=== PATIENT | female | born 1945 | race Caucasian/White ===

== ENCOUNTER → 2016-11-23 | Outpatient (CLI) | payer OTHER ==
--- NOTE | 2016-11-24 07:54 | DX ---
DEXA Bone Densitometry Technique: DEXA scan was performed on [employer] Discovery W Bone Densitometer Indication: Monitor response to treatment Comparator Study: November 2015 Results: Lumbar Spine BMD: 0.868 T-score: -1.6 Prior BMD: 0.894 % change: -3.0% Total Hip (Right) BMD: 0.651 T-score: -2.4 Prior BMD: 0.684 % Change: -4.8% Femoral Neck (Right) BMD: 0.576 T-score: -2.5 Total Hip (Left) BMD: 0.672 T-score: -2.2 Prior BMD: 0.681 % change: -1.3% Femoral Neck (Left) BMD: 0.566 T-score: -2.6 CONCLUSION: Osteoporosis In comparison to the prior study from November 2015 the patient measured BMD in the lumbar spine and r ight hip has decreased significantly. The patient measured BMD in the left hip has not changed signif icantly ADDITIONAL COMMENTS: By FRAX calculation, the estimated 10 year risk of any osteoporotic fracture is 21%. The estimated 10 year risk of hip fracture is 8.3%. Absolute fracture risk would be decreased by the use of medications for the treatment of osteoporosis . This patient meets National Osteoporosis Foundation guidelines for further pharmacologic treatment ba sed on T score less than -2.5, 10 year osteoporotic fracture risk greater than 20%, and 10 year hip f racture risk greater than 3%. Mild scoliosis is present. Mild degenerative changes are present lower lumbar spine. This will increase the measured bone densit y lumbar spine. Consider repeating the study in 1-2 years NOTE: The risk of osteoporotic fractures increases approximately twofold for each 1.0 SD decrease in T-score. The T-score represents the standard deviations from a young normal, same sex, reference po pulation. Low bone density is not the only risk factor for fracture. Clinical factors to consider include fall risk, previous osteoporotic fractures, family history of fractures, smoking, and low body weight. Patients who have an unexpectedly low BMD may need to be evaluated for secondary causes of low bone m ineral density. In comparing the present study to a prior study, lack of a significant increase or decrease in BMD ma y signify efficacy of the patient's present treatment. Bone mineral density measurements performed with densitometers produced by different manufacturers ar e not comparable. For the most reproducible BMD measurement, subsequent exams should be performed on the same densitometer.
== END ==
LOC: BMCIMAGING 14:10
PROVIDERS: ATTEND Internal Medicine Rheumatology
DX: M81.0 Age-related osteoporosis without current pathological fracture (principal)

== ENCOUNTER 2017-04-13 09:39 | Inpatient (IN) | payer OTHER ==
--- NOTE | 2017-04-01 09:17 | GHP ---
[f rep st] PREOP HISTORY AND PHYSICAL DATE OF SURGERY: April 13, 2017. PROBLEM: Right knee arthritis. HISTORY OF PRESENT ILLNESS: The patient is a 71-year-old woman admitted for a right total knee arth roplasty. I have followed her for several years with progressive degenerative arthritis in her righ t knee. She has had several series of Supartz injections. Her pain has been progressive. She is n ow having daily pain. Her activities are limited. She cannot take antiinflammatory medications bec ause of irritable bowel syndrome. PAST MEDICAL HISTORY: She is treated for irritable bowel syndrome. She also was treated for depres nacho, anxiety and sleep difficulty. No history of heart disease, stents, DVT, hepatitis, or sleep a pnea. CURRENT MEDICATIONS: Diclofenac gel, olanzapine for depression and anxiety, paroxetine 10 mg per da y. She uses a Premarin vaginal cream. DRUG ALLERGIES: Codeine causes swelling. She does not like to take antiinflammatory medications be cause of her irritable bowel syndrome. She had a rash reaction to a Band-Aid. METAL ALLERGIES: None. SOCIAL HISTORY: The patient is . 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 She does not smoke ciga rettes and drinks wine with dinner. FAMILY HISTORY: Positive for osteoporosis, diabetes, cancer, arthritis and CVA. PHYSICAL EXAMINATION: GENERAL: She is a thin, healthy-appearing woman. VITAL SIGNS: Height 5 fee t 5 inches. Weight 118 pounds. BMI 19.6. EYES: Conjunctivae and sclerae are clear. Pupils are r ound and reactive. MOUTH: Good oral hygiene. No loose teeth. CHEST: Clear. HEART: Regular rhy thm. No murmurs. EXTREMITIES: Pertinent findings are limited to her right knee. She has a small effusion. She lacks 2 or 3 degrees of full extension and flexes to 120 degrees. Her ligaments are stable. Her patella tracks properly. IMAGING: Her films show advanced medial compartment degenerative arthritis in her right knee. She is yipr-so-nfoi. She has mild degenerative arthritis in the lateral compartment. IMPRESSION ON ADMISSION: 1. Right knee degenerative arthritis, primarily involving the medial compartment. 2. Irritable bowel syndrome. 3. Treatment for depression, anxiety and sleep difficulty. PLAN: She will undergo a right total knee arthroplasty. The surgery has been described to her, inc luding the risks, complications, expectations, and recovery time. I have stressed to her the import ance of postoperative physical therapy. I have explained to her and her that a small percen tage of people do not get a good result with a total knee replacement. All her questions have been answered, and she consents to surgery. Were going to start off trying to use aspirin for DVT prophy laxis if she can tolerate it. /[id number]/MODL
[2017-04-01 14:22] LABS: % IMMATURE GRANULYOCYTES 0.2 % (0.0-1.1); ABSOLUTE IMMATURE GRANULOCYTES 0.01 10^3/uL (0.00-0.10); ADD DIFF? NO; ADD MORPH? NO; ADD SCAN? NO; ATYPICAL LYMPHOCYTE FLAG 20 (0-99); FRAGMENT RBC FLAG 0 (0-99); HEMATOCRIT 38.8 % (38.0-47.0); HEMOGLOBIN 13.4 g/dL (12.6-16.3); LEFT SHIFT FLG 0 (0-99); LIPEMIA HEMOLYSIS FLAG 90 (0-99); MEAN CELL HEMOGLOBIN 34.4 pg (27.9-34.1); MEAN CELL HEMOGLOBIN CONCENTR. 34.5 g/dL (32.4-36.7); MEAN CELL VOLUME 99.5 fL (81.5-99.8); MEAN PLATELET VOLUME 9.4 fL (8.7-11.7); PLATELET CLUMPS FLAG 0 (0-99); PLATELET COUNT 152 10^3/uL (150-400); RED CELL DISTRIBUTION WIDTH 12.2 % (11.5-15.2)
[~2017-04-13 09:39] MED LIST: ACETAMINOPHEN 325 MG TAB PO ONE; CEFAZOLIN 2 GM/DEXTR 100 ML IV ONE; CHLORHEXIDINE GLUC HIBICLENS 118 ML BTL TP ONE; DEXAMETHASONE 4 MG/ML VIAL IVP ONE; FAMOTIDINE 20 MG TAB PO ONE; NS IV ONE; POVIDONE-IODINE 20 ML in SODIUM CL IRRIG SOLUTION 500 ML IRR ONE; ROPI/epiNEPH/KETOROLAC JOINT COCKTAIL IU ONE; TRANEXAMIC ACID IV ONE; VANCOMYCIN 1 GM VIAL ONE; ceFAZolin 1 GM/5 ML SYR ONE
[2017-04-13] MEDS ORDERED: LIDOCAINE 1% 5 ML SDV ID PRN (10:00)
[2017-04-13] MEDS ORDERED: LR 1,000 ML IV ONE (10:00)
[2017-04-13] MEDS ORDERED: DEXAMETHASONE 4 MG/ML VIAL ONE (10:05)
[2017-04-13] MEDS ORDERED: FAMOTIDINE 20 MG TAB ONE (10:06)
[2017-04-13] MEDS ORDERED: CEFAZOLIN 2 GM/DEXTROSE/100 ML BAG IV ONE (10:06)
[2017-04-13] MEDS ORDERED: ACETAMINOPHEN 325 MG TAB ONE (10:06)
[2017-04-13] MEDS ORDERED: PROPOFOL/EMULSION 500 MG/50 ML BOTTLE IV ONE (11:34)
[2017-04-13] MEDS ORDERED: fentaNYL 100 MCG/2 ML INJ ONE (11:34)
--- NOTE | 2017-04-13 11:43 | PDANEPAE ---
ANE History of Present Illness 71 year old with right knee arthritis for TKA ANE Past Medical History - Cardiovascular History Hx Hypertension: No Hx Arrhythmias: No Hx Chest Pain: No Hx Coronary Artery / Peripheral Vascular Disease: No Hx CHF / Valvular Disease: No Hx Palpitations: No - Pulmonary History Hx COPD: No Hx Asthma/Reactive Airway Disease: No Hx Recent Upper Respiratory Infection: No Hx Oxygen in Use at Home: No - Neurologic History Hx Cerebrovascular Accident: No Hx Seizures: No Hx Dementia: No - Endocrine History Hx Diabetes: No - Renal History Hx Renal Disorders: No - Liver History Hx Hepatic Disorders: No - Neurological & Psychiatric Hx Hx Neurological and Psychiatric Disorders: Yes - Cancer History Hx Cancer: No - Congenital Disorder History Hx Congenital Disorders: No - GI History Hx Gastrointestinal Disorders: Yes - Chronic Pain History Chronic Pain: Yes (KNEE MONIQUE) ANE Review of Systems - Exercise capacity METS (RN): 4 METS ANE Patient History - Allergies Allergies/Adverse Reactions: codeine Allergy (Verified 03/22/17 10:53) - Home Medications Home Medications: Denosumab [Prolia] 60 mg SQ Q183D 03/22/17 [Last Taken Unknown] Estrogens,Conjugated [Premarin Vaginal (*)] 1 rebecca VG TUSA@21 03/22/17 [Last Taken 04/09/17] Herbals/Supplements -Info Only 1 ea PO DAILY 03/22/17 [Last Taken Unknown] Multivitamins [Multivitamin (*)] 1 each PO DAILY 03/22/17 [Last Taken Unknown] OLANZapine [ZyPREXA 2.5 mg (*)] 0.25 each PO HS 03/22/17 [Last Taken 04/12/17] PARoxetine HCL [Paxil 10mg (*)] 10 mg PO DAILY 03/22/17 [Last Taken 04/13/17] Polyethylene Glycol 3350 [Miralax 17 gm (*)] 17 gm PO DAILY PRN 03/22/17 [Last Taken 04/12/17] - NPO status NPO Since - Liquids (Date): 04/12/17 NPO Since - Liquids (Time): 21:30 NPO Since - Solids (Date): 04/12/17 NPO Since - Solids (Time): 19:30 - Smoking Hx Smoking Status: Never smoked - Family Anes Hx Family Hx Anesthesia Complications: NEG ANE Labs/Vital Signs - Labs Result Diagrams: 04/01/17 14:04 - Vital Signs Blood Pressure: 128/76 Heart Rate: 59 Respiratory Rate: 16 O2 Sat (%): 98 Height: 165.1 cm Weight: 53.07 kg
--- NOTE | 2017-04-13 11:49 | PDHPUP ---
History & Physical Update H&P update statement: This history and physical update is based on an assessment of the patient which was completed after admission or registration (within 24 hours), but prior to the surgery/procedure. H&P update: H&P reviewed & patient examined, no change in patient's condition since H&P completed
--- NOTE | 2017-04-13 12:04 | PDANEPAE ---
ANE History of Present Illness 71 year old with right knee arthritis. For Right TKA ANE Past Medical History - Cardiovascular History Hx Hypertension: No Hx Arrhythmias: No Hx Chest Pain: No Hx Coronary Artery / Peripheral Vascular Disease: No Hx CHF / Valvular Disease: No Hx Palpitations: No - Pulmonary History Hx COPD: No Hx Asthma/Reactive Airway Disease: No Hx Recent Upper Respiratory Infection: No Hx Oxygen in Use at Home: No - Neurologic History Hx Cerebrovascular Accident: No Hx Seizures: No Hx Dementia: No - Endocrine History Hx Diabetes: No - Renal History Hx Renal Disorders: No - Liver History Hx Hepatic Disorders: No - Neurological & Psychiatric Hx Hx Neurological and Psychiatric Disorders: Yes - Cancer History Hx Cancer: No - Congenital Disorder History Hx Congenital Disorders: No - GI History Hx Gastrointestinal Disorders: Yes - Chronic Pain History Chronic Pain: Yes (KNEE MONIQUE) ANE Review of Systems Review of systems is: negative Review of Systems: + for IBS - Exercise capacity METS (RN): 4 METS ANE Patient History - Allergies Allergies/Adverse Reactions: codeine Allergy (Verified 03/22/17 10:53) - Home Medications Home Medications: Denosumab [Prolia] 60 mg SQ Q183D 03/22/17 [Last Taken Unknown] Estrogens,Conjugated [Premarin Vaginal (*)] 1 rebecca VG TUSA@21 03/22/17 [Last Taken 04/09/17] Herbals/Supplements -Info Only 1 ea PO DAILY 03/22/17 [Last Taken Unknown] Multivitamins [Multivitamin (*)] 1 each PO DAILY 03/22/17 [Last Taken Unknown] OLANZapine [ZyPREXA 2.5 mg (*)] 0.25 each PO HS 03/22/17 [Last Taken 04/12/17] PARoxetine HCL [Paxil 10mg (*)] 10 mg PO DAILY 03/22/17 [Last Taken 04/13/17] Polyethylene Glycol 3350 [Miralax 17 gm (*)] 17 gm PO DAILY PRN 03/22/17 [Last Taken 04/12/17] - NPO status NPO Since - Liquids (Date): 04/12/17 NPO Since - Liquids (Time): 21:30 NPO Since - Solids (Date): 04/12/17 NPO Since - Solids (Time): 19:30 - Smoking Hx Smoking Status: Never smoked - Family Anes Hx Family Hx Anesthesia Complications: NEG ANE Labs/Vital Signs - Labs Result Diagrams: 04/01/17 14:04 - Vital Signs Blood Pressure: 128/76 Heart Rate: 59 Respiratory Rate: 16 O2 Sat (%): 98 Height: 165.1 cm Weight: 53.07 kg ANE Physical Exam - Airway Mallampati Score: Class 1 Mouth exam: normal dental/mouth exam - Pulmonary Pulmonary: no respiratory distress, clear to auscultation - Cardiovascular Cardiovascular: regular rate and rhythym - ASA Status ASA Status: II ANE Anesthesia Plan Anesthesia Plan: spinal
[2017-04-13] MEDS ORDERED: MIDAZOLAM 2 MG/2 ML VIAL IVP ONE (12:07)
[2017-04-13] MEDS ORDERED: ceFAZolin 1 GM VIAL ONE (12:10)
[2017-04-13] MEDS ORDERED: ceFAZolin 1 GM/5 ML SYR ONE (12:12)
[2017-04-13] MEDS ORDERED: LIDOCAINE 2% 5 ML SDV ONE (12:37)
[2017-04-13] MEDS ORDERED: ONDANSETRON 4 MG/2 ML VIAL IVP PRN ×2 (14:02→14:22)
[2017-04-13] MEDS ORDERED: PROMETHAZINE HCL 25 MG/ML INJ IVP PRN ×2 (14:02→14:22)
[2017-04-13] MEDS ORDERED: fentaNYL 100 MCG/2 ML INJ IVP PRN (14:02)
[2017-04-13] MEDS ORDERED: NALOXONE HCL 0.4 MG/ML INJ IVP PRN (14:02)
[2017-04-13] MEDS ORDERED: LACTULOSE 20 GM/30 ML UDCUP PO PRN (14:22)
[2017-04-13] MEDS ORDERED: BISACODYL 10 MG SUPP PR PRN (14:22)
[2017-04-13] MEDS ORDERED: DIPHENOXYLATE/ATROPINE LOMOTIL 1 TAB PO PRN (14:22)
[2017-04-13] MEDS ORDERED: NS 500 ML IV PRN (14:22)
[2017-04-13] MEDS ORDERED: PHARMACY PAIN CONSULT 1 EA MISC PRN (14:22)
[2017-04-13] MEDS ORDERED: POLYETHYLENE GLYCOL 3350 17 GM PKT PO PRN (14:22)
[2017-04-13] MEDS ORDERED: diphenhydrAMINE 25 MG CAP PO PRN (14:22)
[2017-04-13] MEDS ORDERED: KETOROLAC 30 MG/1 ML SDV IVP PRN (14:22)
[2017-04-13] MEDS ORDERED: PROMETHAZINE HCL 25 MG SUPPR PR PRN (14:22)
[2017-04-13] MEDS ORDERED: TEMAZEPAM 15 MG CAP PO PRN (14:22)
[2017-04-13] MEDS ORDERED: MAGNESIUM HYDROXIDE 30 ML UDCUP PO PRN (14:22)
[2017-04-13] MEDS ORDERED: ONDANSETRON DISINTEGRATING 4 MG TAB PO PRN (14:22)
--- NOTE | 2017-04-13 14:29 | POSTOPPROG ---
Post Op Note Date of Operation: 04/13/17 Surgeon: Jagdeep Betancourt Combiner Operator: Jackson/Cecilia Anesthesiologist: Warm Anesthesia: IV Sedation, Spinal Post-op Diagnosis: R knee arthritis Procedure: R TKA Inf/Abcess present in the surg proc area at time of surgery?: No EBL: 50-100 (add canal block)
[2017-04-13] MEDS ORDERED: LR 1,000 ML IV SCH (14:30)
--- NOTE | 2017-04-13 14:40 | POSTANESTH ---
Post Anesthetic Evaluation Cardiovascular Status: Normal, Stable Respiratory Status: Normal, Stable Level of Consciousness/Mental Status: Can Participate in Eval, Alert and Oriented Pain Control: Adequate, Prn Tx Ordered Nausea/Vomiting Control: Adequate, Prn Tx Ordered Complications Possibly Related to Anesthesia: None Noted Notes: Pt tolerated spinal well
--- NOTE | 2017-04-13 15:22 | GOP ---
[f rep st] OPERATIVE REPORT DATE OF OPERATION: 04/13/2017 SURGEON: Jagdeep Betancourt MD BACK FILLER OPERATOR: John Paz and Andrew Brooks. ANESTHESIA: Combination of Marcaine, spinal and IV sedation, and adductor canal block by Dr. Kris blanco. PREOPERATIVE DIAGNOSIS: Right knee severe degenerative arthritis. POSTOPERATIVE DIAGNOSIS: Right knee severe degenerative arthritis. PROCEDURE PERFORMED: Right total knee arthroplasty, cemented, Laguerre and Nephew Journey II, posterio r stabilized. FINDINGS: DESCRIPTION OF PROCEDURE: The patient was given 2 g of preoperative IV Ancef within 60 minutes of s urgery. She also received IV tranexamic acid at a dose of 10 mg/kg. She was placed on the operatin g room table and given spinal anesthesia with Marcaine by Dr. Kris Ackerman. She was then placed supine and given IV sedation. A Schafer catheter was not used. She wore a KRIS stocking and SCD on the nonop erative leg. Her right lower extremity was prepped with ChloraPrep from the upper thigh tourniquet to the tips of the toes. It was draped free using sterile sheets, stockinette, and Ioban plastic ad hesive drape. The lower leg was wrapped with compressive Coban. The leg was exsanguinated with kang vation and a 6-inch compressive wrap, and the pneumatic tourniquet was inflated to 250 mmHg. The [facility] time-out was performed to verify the correct patient identity and the virtua voorhees t surgical side and site. The [place] time-out was also performed. The [employer] leg holding device w as sterilely attached to the operating room table and used throughout the procedure to help position the knee. A straight midline incision was made centered on the patella. Subcutaneous tissues were sharply div ided and hemostasis was obtained using electrocautery. A medial subcutaneous flap was developed and the capsule and synovium were opened in a medial parapatellar fashion. Extensive degenerative ramírez ges were present in her medial compartment and in the patellofemoral joint. The medial capsule and periosteum were elevated off the rim of the medial tibial plateau all the way around to the posterom edial corner. Her medial collateral ligament was released enough to balance the medial side of the knee. In order to improve exposure, her patella was prepared first. The original thickness of the patella was measured. Peripheral osteophytes were removed. I cut a f lat surface on the back of her patella. She was sized for a 35 mm resurfacing component. I removed enough bone from the patella such that the remaining bone plus the thickness of the patellar compon ent recreated the original thickness of the patella. Her composite thickness was 22 mm. The intram edullary alignment guide system was used to set up the distal femoral cut. The distal femur was cut in 5 degrees of valgus. Because of a 10 or 12 degree flexion contracture preoperatively, I made a +2 mm cut on the distal femur. The sizing jig was used to determine proper femoral sizing. I shift ed the jig anteriorly 1 mm in order to accommodate a size 4 femoral component without notching the a nterior cortex. The 5 in 1 cutting block was applied, and the anterior and posterior condylar cuts and chamfer cuts were made. The final jig was used to remove the central portion of the distal femu r to accommodate the posterior stabilized femoral component. I was careful to determine proper rota tion by referencing off Whitesides line. Each cut was checked for accuracy before and after it was made. The femur was sized for a size 4 posterior stabilized component. The trial component was tap ped securely into place and was a good fit. Next, the tibia was prepared. The proximal tibial cut was made using the extramedullary alignment g uide system. The cut was made in a few degrees of posterior slope. I was careful to achieve proper varus valgus alignment and proper rotation. The posterior compartment was cleared of meniscal remn ants. Osteophytes were removed from the back of the femoral condyles. I checked the flexion and ex tension gaps. I felt she was still a little bit tight on the medial side. I did further more dista l release of her medial collateral ligament attachment on the tibia. At this point, the flexion ext ension gaps were equal, balanced and rectangular. The tibia was sized for a size 3 component. With the trial components in place, I selected a 9 mm polyethylene posterior stabilized tibial insert. The knee came to full extension and flexed to 130 degrees. There was no overstuffing in flexion. H er collateral ligaments were stable and balanced in 90 degrees of flexion and full extension. The t rial button was applied and tracking was checked. Tracking was excellent, without any digital press ure. 40 mL of a joint anesthetic cocktail was injected in the posterior capsule, the periarticular structures, the quadriceps muscle and tendon areas, and the subcutaneous tissues along the skin edge s. A second dose of IV tranexamic acid was given at a dose of 10 mg/kg. The surfaces were prepared for cementing. They were carefully cleaned with the pulsating lavage irrigation and thoroughly dri ed. The CarboJet device was used to blow dry the cancellous surfaces. A double batch of methylmeth acrylate cement with 2 g of powdered vancomycin added was mixed. While it was still in a semi liqui d state, all 3 components were cemented in place. Excess cement was removed before it hardened. Th e 9 mm trial tibial insert was re-tried and was the proper thickness. The actual component was inse rted and locked into place. The knee was thoroughly irrigated one final time with a dilute Betadine solution. The tourniquet wa s deflated. The total tourniquet time was 56 minutes. The vastus medialis portion of the extensor mechanism was repaired with several interrupted [id number] #2 FiberWire sutures. The capsule a nd synovium were closed first with multiple interrupted [id number] 0 PDS sutures followed by a running #2 barbed Ethicon Stratafix PDO suture. The subcutaneous tissues were closed with a running 0 barbed Ethicon Stratafix Monoderm suture. The skin was closed with a running 3-0 barbed Ethicon Stratafix Monoderm subcuticular suture. The skin was sealed with half-inch Steri-Strips. The wound was covered with Xeroform gauze and flat 4x4s. The knee was wrapped with Kerlix and a 6-inch compr essive wrap. A long-leg KRIS stocking and SCD were applied followed by the cooling device. She wore a stocking and SCD on the opposite leg during the procedure. I used a size 4 cemented Laguerre and Nephew Oxinium posterior stabilized femoral component, size 3 ben ented tibial base plate, a 9 mm posterior stabilized tibial insert and a 35 mm cemented round all-po lyethylene resurfacing patellar component. The estimated blood loss following deflation of the tourniquet was about 100 mL. The sponge and nee dle count were correct on 2 occasions. She was awakened from anesthesia, transferred to a kam moore nd taken to the PACU in satisfactory condition. There were no recognized intraoperative complicatio ns. In the PACU, for additional postoperative pain control, Dr. Ackerman performed an adductor canal block. John Paz and Anrdew Brooks acted as surgical assistants. Their assistance was a annamaria raygoza. /[id number]/MODL
[2017-04-13] MEDS: ACETAMINOPHEN 325 MG TAB PO SCH ×2 (17:53→23:45)
[2017-04-13] MEDS ORDERED: ESTROGENS,CONJUGATED 30 GM CRTUBE VG SCH (21:00)
[2017-04-13] MEDS ORDERED: OLANZapine 2.5 MG TAB PO SCH (21:00)
[2017-04-13] MEDS: ceFAZolin 2 GM/DEXTROSE 100 ML IV SCH (22:12)
[2017-04-13] MEDS: TRANEXAMIC ACID 650 MG TAB PO SCH (22:12)
[2017-04-13] MEDS: SENNOSIDES/DOCUSATE SODIUM TAB PO SCH (22:12)
[2017-04-13] MEDS: ASPIRIN 325 MG TAB PO SCH (22:12)
[2017-04-13] MEDS: CYCLOBENZAPRINE 10 MG TAB PO PRN (22:13)
[2017-04-13] MEDS: traMADol 50 MG TAB PO PRN (22:13)
[2017-04-13] MEDS: FAMOTIDINE 20 MG TAB PO SCH (22:13)
[2017-04-14] MEDS: ceFAZolin 2 GM/DEXTROSE 100 ML IV SCH (05:26)
[2017-04-14] MEDS: TRANEXAMIC ACID 650 MG TAB PO SCH ×2 (05:26→13:20)
[2017-04-14] MEDS: traMADol 50 MG TAB PO PRN (05:27)
[2017-04-14] MEDS: ACETAMINOPHEN 325 MG TAB PO SCH ×2 (05:27→13:20)
[2017-04-14] MEDS: CYCLOBENZAPRINE 10 MG TAB PO PRN (05:28)
[2017-04-14 07:50] VITALS: BP 128/58; PULSE 78; RESP 16; TEMP 97.9; O2SAT 93
[2017-04-14] MEDS: FAMOTIDINE 20 MG TAB PO SCH (08:40)
[2017-04-14] MEDS: ASPIRIN 325 MG TAB PO SCH (08:40)
[2017-04-14] MEDS: oxyCODONE IR 5 MG TAB PO PRN ×2 (08:40→13:20)
[2017-04-14] MEDS: SENNOSIDES/DOCUSATE SODIUM TAB PO SCH (08:40)
[2017-04-14] MEDS ORDERED: FERROUS SULFATE 140 MG TAB.ER PO SCH (09:00)
[2017-04-14] MEDS ORDERED: Herbals/Supplements -Info Only PO SCH (09:00)
[2017-04-14] MEDS ORDERED: MULTIVITAMINS 1 EACH TAB PO SCH (09:00)
[2017-04-14] MEDS ORDERED: PARoxetine HCL 10 MG TAB PO SCH (09:00)
--- NOTE | 2017-04-14 09:50 | PDIAF ---
- Diagnosis Diagnosis: right knee OA Code Status: Full Code - Medication Management Discharge Medications: Medications to Continue on Transfer Denosumab [Prolia] 60 mg SQ Q183D 03/22/17 [Last Taken Unknown] Estrogens,Conjugated [Premarin Vaginal (*)] 1 rebecca VG ALEJANDRO@21 03/22/17 [Last Taken 04/09/17] Herbals/Supplements -Info Only 1 ea PO DAILY 03/22/17 [Last Taken Unknown] Multivitamins [Multivitamin (*)] 1 each PO DAILY 03/22/17 [Last Taken Unknown] OLANZapine [ZyPREXA 2.5 mg (*)] 0.25 each PO HS 03/22/17 [Last Taken 04/12/17] PARoxetine HCL [Paxil 10mg (*)] 10 mg PO DAILY 03/22/17 [Last Taken 04/13/17] Polyethylene Glycol 3350 [Miralax 17 gm (*)] 17 gm PO DAILY PRN 03/22/17 [Last Taken 04/12/17] Acetaminophen [Tylenol 325mg (*)] 650 mg PO Q6HRS #0 tab 04/14/17 [Last Taken Unknown] Aspirin [Aspirin 325 mg (*)] 325 mg PO DAILY #21 tab 04/14/17 [Last Taken Unknown] Ferrous Sulfate [Slow Fe 140 MG (*)] 140 mg PO DAILY #30 tab.er 04/14/17 [Last Taken Unknown] Ondansetron Odt [Zofran Odt 4 mg (*)] 4 mg PO Q4HRS PRN #0 tab 04/14/17 [Last Taken Unknown] oxyCODONE IR [Oxycodone Ir (*)] 5 - 10 mg PO Q3HRS PRN #0 tab 04/14/17 [Last Taken Unknown] traMADol [Ultram 50 mg (*)] 50 mg PO Q6HRS PRN #0 tab 04/14/17 [Last Taken Unknown] Discharge Medications: Refer to the Discharge Home Medication list for PRN reason. PICC Care - Routine: N/A - Orders Services needed: Home Care, Physical Therapy Home Care Face to Face: I certify that this patient was under my care and that I had the required labv-aw-qaft encounter meeting the encounter requirements on the discharge day. My findings support the fact that the patient is homebound as defined in CMS Chapter 7 Medicare Benefits Manual 30.1.1, The condition of the patient is such that there exists a normal inability to leave home and consequently, leaving home would require a considerable and taxing effort. Diet Recommendation: no restrictions on diet Diet Texture: Regular Texture Diet Schafer: Not applicable Walter Stockings Discontinue Date: 1 week Wound Care Instructions: keep clean and dry. You may shower. Activity/Weight Bearing Restrictions: as tolerated. Additional: Zero knee in bed as tolerated. - Follow Up Care Current Providers and Referrals: Antonio Thompson PA [Primary Care Provider] - Jagdeep Betancourt MD [Medical Doctor] - 04/29/17 1:30 pm
--- NOTE | 2017-04-14 09:58 | SOAPPROG ---
SOAP Progress Note Assessment/Plan: Assessment: Afebrile. Up and walking in room. Moderate pain. Dsg is dry. Mild swelling. H/H is good. Films look good. Plan:Up with PT. Std long leg film today. DC later today. 04/14/17 09:57 Objective: Vital Signs Temp Pulse Resp BP Pulse Ox 36.6 C 78 16 128/58 H 93 04/14/17 07:49 04/14/17 07:49 04/14/17 07:49 04/14/17 07:49 04/14/17 07:49 Laboratory Results 04/14/17 05:00 04/13/17 04/14/17 04/15/17 05:59 05:59 05:59 Intake Total 1600 Output Total 150 Balance 1450 ICD10 Worksheet Patient Problems: Problems Problem Status Onset Osteoarthritis of right knee Acute
--- NOTE | 2017-04-14 10:24 | GDS ---
[f rep st] DISCHARGE SUMMARY ADMISSION DIAGNOSIS: Right knee degenerative arthritis. DISCHARGE DIAGNOSIS: Right knee degenerative arthritis. OPERATION PERFORMED: On 04/13/2017, right total knee arthroplasty. POSTOPERATIVE COMPLICATIONS: None. CONDITION ON DISCHARGE: Improved. DESCRIPTION OF HOSPITAL COURSE: The patient was admitted to the hospital on the morning of surgery. Her preoperative CBC was normal. The same day, under a combination of Marcaine, spinal anesthesia , IV sedation, and adductor canal block, she underwent a right total knee arthroplasty. Postoperati vely, she was treated with multimodal DVT prophylaxis including aspirin. On the first postoperative day, hemoglobin and hematocrit were 11.0 and 32.0. She was seen by Physical Therapy and made good progress with ambulation and stairs. By the time of discharge, she was afebrile, and she was indepe ndent walking with a walker. DISPOSITION: The patient discharged to her home. She will have home physical therapy. Continue TE D stockings for 1 week. Continue aspirin 325 mg p.o. b.i.d. for 21 days. She has prescriptions for oxycodone and tramadol for pain control. I will see her back in the office on 04/27/2017. If ther e are any problems, she is to call me at the office. /[id number]/MODL
== END 2017-04-14 15:17 | disposition home health service (06) | DRG 470 ==
LOC: F3N 09:39
PROVIDERS: ADMIT Orthopaedic Surgery; ATTEND Orthopaedic Surgery
PROC: 0SRC0J9 Replacement of Right Knee Joint with Synthetic Substitute, Cemented, Open Approach (ICD-10-PCS; principal; 2017-04-13 12:15)
DX: M17.11 Unilateral primary osteoarthritis, right knee (principal); K58.9 Irritable bowel syndrome, unspecified
CPT/HCPCS: 97161-GP; 97165-GO; C1713; G8978-GP-CI; G8979-GP-CI; G8980-GP-CI; G8987-GO-CI; G8988-GO-CH; G8989-GO-CH; J0171; J0690; J1100; J1885; J2250; J2704; J2795; J3010; J3370

== ENCOUNTER → 2017-06-21 | Outpatient (CLI) | payer OTHER | LOC: BMCIMAGING 14:26 | PROVIDERS: ATTEND Physician Assistant | DX: Z12.31 Encounter for screening mammogram for malignant neoplasm of breast (principal) | CPT/HCPCS: G0202 ==

== ENCOUNTER → 2018-06-23 | Outpatient (CLI) | payer OTHER | LOC: BMCIMAGING 13:42 | PROVIDERS: ATTEND Physician Assistant | DX: Z12.31 Encounter for screening mammogram for malignant neoplasm of breast (principal) ==

== ENCOUNTER → 2018-12-12 | Outpatient (CLI) | payer OTHER | LOC: BMCIMAGING 14:36 | PROVIDERS: ATTEND Internal Medicine Rheumatology | DX: Z13.820 Encounter for screening for osteoporosis (principal); M85.89 Other specified disorders of bone density and structure, multiple sites ==